=== PATIENT | male | born 1995 | race Caucasian/White ===

== ENCOUNTER 2018-07-15 12:22 | Emergency (ER) | payer MEDICAID ==
[~2018-07-15] VITALS: Ht 167.6 cm; Wt 79.3 kg
[~2018-07-15 12:22] MED LIST: ALBU8HFA PO; GUAI1TBM19 PO
[2018-07-15 13:08] LABS: BASOPHILS # (AUTO) 0.1 X10'3 (0-0.2); EOSINOPHILS # (AUTO) 1.4 X10'3 (0-0.9); EOSINOPHILS % (AUTO) 11.2 % (0-6); HEMATOCRIT 52.2 % (42.0-52.0); HEMOGLOBIN 17.8 g/dl (14.0-17.9); LYMPHOCYTES # (AUTO) 2.3 X10'3 (1.1-4.8); LYMPHOCYTES % (AUTO) 18.3 % (21-51); MEAN CORPUSCULAR HGB CONC 34.1 % (33.0-36.5); MEAN CORPUSCULAR VOLUME 85.1 FL (78-98); MEAN PLATELET VOLUME 8.8 FL (7.4-10.4); MONOCYTES # (AUTO) 0.8 X10'3 (0-0.9); MONOCYTES % (AUTO) 6.2 % (2-12); NEUTROPHILS # (AUTO) 7.9 X10'3 (1.8-7.7); NEUTROPHILS % (AUTO) 63.3 % (42-75); PLATELET COUNT 287 X10'3 (140-440); RED BLOOD COUNT 6.13 X10'6 (4.70-6.10); RED CELL DISTRIBUTION WIDTH 12.9 % (11.5-14.5); WHITE BLOOD COUNT 12.5 X10'3 (4.5-11.0)
[2018-07-15 13:24] LABS: ALANINE AMINOTRANSFERASE 48 U/L (12-78); ALBUMIN 4.5 G/DL (3.4-5.0); ALKALINE PHOSPHATASE 95 IU/L (46-116); ANION GAP 11 (8-16); ASPARTATE AMINO TRANSFERASE 21 U/L (10-37); BILIRUBIN,TOTAL 0.7 MG/DL (0.1-1.0); BLOOD UREA NITROGEN 11 MG/DL (7-18); BUN/CREATININE RATIO 13.4 (5.4-32.0); CALCIUM 9.9 MG/DL (8.5-10.1); CHLORIDE 100 MMOL/L (99-107); CREATININE 0.82 MG/DL (0.60-1.10); GLUCOSE 98 MG/DL (70-104); POTASSIUM 3.6 MMOL/L (3.5-5.1); SODIUM 140 MMOL/L (135-145); TOTAL CARBON DIOXIDE 29.2 MMOL/L (24-32); TOTAL PROTEIN 8.8 G/DL (6.4-8.2); eGFR > 90 ML/MIN
[2018-07-15 13:49] LABS: PARTIAL THROMBOPLASTIN TIME 31 SECONDS (22-32)
[2018-07-15 14:04] VITALS: BP 158/98
== END 2018-07-15 15:11 | disposition home or self-care (01) ==
LOC: ER 12:22
DX: R00.2 Palpitations (principal); R06.02 Shortness of breath; J45.909 Unspecified asthma, uncomplicated; F20.9 Schizophrenia, unspecified; F12.10 Cannabis abuse, uncomplicated; Z88.1 Allergy status to other antibiotic agents; Z88.0 Allergy status to penicillin
CPT/HCPCS: 36415; 71045; 80053; 84484; 85025; 85379; 85610; 85730; 93005; 99285

== ENCOUNTER 2018-07-20 19:58 | Emergency (ER) | payer MEDICAID ==
[~2018-07-20] VITALS: Ht 165.1 cm; Wt 80.0 kg
[2018-07-20 20:20] VITALS: BP 154/103
[2018-07-20] MEDS ORDERED: albuterol 2.5 MG/3 ML nebule NEB ONE (20:50)
[2018-07-20] MEDS ORDERED: PRED20TA PO (21:19)
[2018-07-20] MEDS ORDERED: ALBU18HF2 INH (21:19)
[2018-07-20] MEDS ORDERED: predniSONE 20 mg tablet PO ONE (21:20)
== END 2018-07-20 21:46 | disposition home or self-care (01) ==
LOC: ER 19:59
DX: J45.909 Unspecified asthma, uncomplicated (principal); F12.90 Cannabis use, unspecified, uncomplicated; Z88.0 Allergy status to penicillin; Z88.1 Allergy status to other antibiotic agents; Z88.8 Allergy status to other drugs, medicaments and biological substances
CPT/HCPCS: 71045; 93005; 94640; 94760; 99284; J7512

== ENCOUNTER 2018-08-22 20:13 | Emergency (ER) | payer MEDICAID ==
[~2018-08-22] VITALS: Ht 165.1 cm; Wt 81.7 kg
[~2018-08-22 20:13] MED LIST changes: +ALBU18HF2 INH
[2018-08-22] MEDS ORDERED: predniSONE 20 mg tablet PO ONE (22:35)
[2018-08-22] MEDS ORDERED: ipratropium/albuterol 3ml nebule NEB ONE (22:35)
[2018-08-22] MEDS ORDERED: ALBU8.5H8 INH (23:25)
[2018-08-22] MEDS ORDERED: PRED20TA PO (23:25)
[2018-08-22 23:33] VITALS: BP 151/98
== END 2018-08-22 23:35 | disposition home or self-care (01) ==
LOC: ER 20:13
DX: J45.901 Unspecified asthma with (acute) exacerbation (principal); F12.90 Cannabis use, unspecified, uncomplicated; Z88.0 Allergy status to penicillin; Z88.1 Allergy status to other antibiotic agents; Z88.8 Allergy status to other drugs, medicaments and biological substances; Z79.899 Other long term (current) drug therapy
CPT/HCPCS: 71046; 93005; 94640; 94760; 99283; J7512

== ENCOUNTER 2018-10-15 20:16 | Emergency (ER) | payer MEDICAID ==
[~2018-10-15] VITALS: Ht 165.1 cm; Wt 80.0 kg
[~2018-10-15 20:16] MED LIST changes: +ALBU8.5H8 INH
[2018-10-15 20:21] VITALS: BP 136/91
[2018-10-15] MEDS ORDERED: albuterol 2.5 mg/0.5ml nebule NEB ONE (21:20)
[2018-10-15] MEDS ORDERED: albuterol 2.5 MG/3 ML nebule NEB ONE (21:25)
--- NOTE | 2018-10-15 21:41 | NUR ---
RT WITH PT, PT IS RECEIVING BREATHING TX
[2018-10-15 21:51] LABS: BASOPHILS % (AUTO) 0.4 % (0-1); EOSINOPHILS # (AUTO) 0.7 X10'3 (0-0.9); EOSINOPHILS % (AUTO) 6.1 % (0-6); HEMATOCRIT 47.1 % (42.0-52.0); HEMOGLOBIN 16.1 g/dl (14.0-17.9); LYMPHOCYTES # (AUTO) 2.6 X10'3 (1.1-4.8); MEAN CORPUSCULAR HEMOGLOBIN 29.6 PG (27.0-31.0); MEAN CORPUSCULAR HGB CONC 34.2 g/dL (33.0-36.5); MEAN CORPUSCULAR VOLUME 86.3 FL (78-98); MEAN PLATELET VOLUME 8.6 FL (7.4-10.4); MONOCYTES # (AUTO) 0.9 X10'3 (0-0.9); MONOCYTES % (AUTO) 7.4 % (2-12); NEUTROPHILS # (AUTO) 7.7 X10'3 (1.8-7.7); NEUTROPHILS % (AUTO) 64.1 % (42-75); PLATELET COUNT 232 X10'3 (140-440); RED BLOOD COUNT 5.46 X10'6 (4.70-6.10); RED CELL DISTRIBUTION WIDTH 13.2 % (11.5-14.5)
[2018-10-15 21:59] LABS: ALANINE AMINOTRANSFERASE 77 U/L (12-78); ALBUMIN 4.2 G/DL (3.4-5.0); ALBUMIN/GLOBULIN RATIO 1.1 (1.1-1.5); ALKALINE PHOSPHATASE 77 IU/L (46-116); ANION GAP 12 (8-16); ASPARTATE AMINO TRANSFERASE 30 U/L (10-37); BILIRUBIN,TOTAL 0.5 MG/DL (0.1-1.0); BLOOD UREA NITROGEN 20 MG/DL (7-18); BUN/CREATININE RATIO 22.5 (5.4-32.0); CALCIUM 9.2 MG/DL (8.5-10.1); CHLORIDE 100 MMOL/L (99-107); CREATININE 0.89 MG/DL (0.60-1.10); GLUCOSE 84 MG/DL (70-104); POTASSIUM 3.3 MMOL/L (3.5-5.1); SODIUM 141 MMOL/L (135-145); TOTAL CARBON DIOXIDE 29.1 MMOL/L (24-32); TOTAL PROTEIN 7.9 G/DL (6.4-8.2); eGFR > 90 ML/MIN
[2018-10-15 22:04] LABS: PARTIAL THROMBOPLASTIN TIME 29 SECONDS (22-32); PROTHROMBIN TIME 9.9 SECONDS (9.0-12.0)
[2018-10-15] MEDS ORDERED: PRED20TA PO (22:07)
== END 2018-10-15 22:27 | disposition home or self-care (01) ==
LOC: ER 20:17
DX: J45.901 Unspecified asthma with (acute) exacerbation (principal); F12.90 Cannabis use, unspecified, uncomplicated; Z88.0 Allergy status to penicillin; Z88.1 Allergy status to other antibiotic agents; Z88.8 Allergy status to other drugs, medicaments and biological substances; Z79.899 Other long term (current) drug therapy
CPT/HCPCS: 36415; 71045; 80053; 85025; 85610; 85730; 93005; 94640; 94760; 99284; J7611

== ENCOUNTER 2018-10-27 18:16 | Inpatient (IN) | payer MEDICAID | END 2018-10-29 11:45 | disposition home or self-care (01) | LOC: ER 18:16 → PCU 3S 10-28 06:42 → ED HOLD 20:40 ==

== ENCOUNTER 2018-11-08 08:49 | Emergency (ER) | payer MEDICAID ==
[~2018-11-08] VITALS: Ht 165.1 cm; Wt 84.0 kg
[~2018-11-08 08:49] MED LIST changes: -ALBU8.5H8 INH; -ALBU8HFA PO; +BECL10.62 INH; +BENZ-16 PO; +CHOL2000 PO; +DOXY100C43 PO; -GUAI1TBM19 PO; +IPRA3AMP31 INH; +LISI-604 PO
[2018-11-08 09:04] VITALS: BP 140/82
== END 2018-11-08 09:29 | disposition home or self-care (01) ==
LOC: ER 08:49
DX: R42 Dizziness and giddiness (principal); B34.9 Viral infection, unspecified; R06.02 Shortness of breath; F12.90 Cannabis use, unspecified, uncomplicated; F20.9 Schizophrenia, unspecified
CPT/HCPCS: 93005; 99283

== ENCOUNTER 2019-01-03 12:06 | Emergency (ER) | payer MEDICAID ==
[~2019-01-03] VITALS: Ht 165.1 cm; Wt 81.0 kg
[~2019-01-03 12:06] MED LIST changes: -BENZ-16 PO; -DOXY100C43 PO
[2019-01-03] MEDS ORDERED: traMADol 50MG tablet PO ONE (12:55)
[2019-01-03] MEDS ORDERED: CLIN-96 PO (12:56)
[2019-01-03] MEDS ORDERED: TRAM50TA2 PO (12:56)
[2019-01-03 13:26] VITALS: BP 148/98
== END 2019-01-03 13:27 | disposition home or self-care (01) ==
LOC: ER 12:06
DX: K08.89 Other specified disorders of teeth and supporting structures (principal); K02.9 Dental caries, unspecified; J45.909 Unspecified asthma, uncomplicated; F12.90 Cannabis use, unspecified, uncomplicated; Z88.0 Allergy status to penicillin; Z88.1 Allergy status to other antibiotic agents; Z79.899 Other long term (current) drug therapy
CPT/HCPCS: 99283